=== PATIENT | female | born 1945 | race Caucasian/White ===

== ENCOUNTER 2017-11-25 20:32 | Observation (INO) ==
[2017-11-25] MEDS ORDERED: Sod Chloride 0.9% Inj 1,000 ML IV.SIG ONE (21:52)
[2017-11-25] MEDS ORDERED: Dextrose 50% in Water 50 ML Vial IV.PUSH PRN (21:52)
--- NOTE | 2017-11-25 21:52 | ED ---
HPI General Chief Complaint: Recheck/Abnormal Lab/Rx Stated Complaint: doctor sent Time Seen by Provider: 11/25/17 21:14 History of Present Illness HPI narrative: Patient is a 72-year-old female who was in [place] visiting her grandchildren she was there for a while she was in a breast cancer and they were discussing plans to mastectomy and reconstructive surgery however today she was called and told the CAT scan of her head showed there was metastases to her lungs and her head there come in immediately because Dr. Subramanian is the guide on could remove her uterus because she had ovarian cancer in the past as well. She has been progressively getting more forgetful she has mild edema of her lower extremities and she has a new diagnosis a primary breast with lung metastases as well ,, no other symptoms at this time except worsening mental functioning she is on no medications on a daily basis she denies diabetes hypertension cardiac problems in the past. At this time the main complaint is new diagnosis and was made aware that she emergently should get to an emergency room Related Data Home Medications Medication Instructions Recorded Confirmed zolpidem [Ambien] 5 mg PO HS 11/25/17 11/25/17 Allergies Allergy/AdvReac Type Severity Reaction Status Date / Time propoxyphene Allergy Mild NAUSEA Verified 11/26/17 00:34 meperidine AdvReac Intermediate vomits Verified 11/26/17 00:34 codeine AdvReac Unknown N/V Verified 11/26/17 00:34 Review of Systems ROS: all other systems reviewed are negative [facility] Medical History Medical History Breast CA (Acute) Cervical ca (Acute) History of hysterectomy (Acute) Social History Social History Substance History: No History of Abuse Second Hand Smoke Exposure: Yes Smoking Status: Former smoker How Often Do You Have a Drink Containing Alcohol: 2 to 3 times a week Recent Travel in [facility] [[email or web address]] within the Last 8 Weeks: No Recent Out of Country Travel within the Last 8 Weeks: No Immunization History Tetanus Immunization: <5 Years Exam Narrative Exam Narrative: GENERAL: awake alert but slow to answer questions answering all questions and providing all details of HPI SKIN: Warm and dry. HEAD: Atraumatic. Normocephalic. EYES: Pupils equal and round. No scleral icterus. No injection or drainage. ENT: No nasal bleeding or discharge. Mucous membranes pink and moist. NECK: Trachea midline. No JVD. CARDIOVASCULAR: Regular rate and rhythm. RESPIRATORY: No accessory muscle use. Clear to auscultation. Breath sounds equal bilaterally. GASTROINTESTINAL: Abdomen soft, non-tender, nondistended. Hepatic and splenic margins not palpable. MUSCULOSKELETAL: Extremities L> R edema in ankle No obvious deformities. NEUROLOGICAL: Awake and alert slow to answer questions . No obvious cranial nerve deficits. Motor grossly within normal limits. Five out of 5 muscle strength in the arms and legs. Normal speech. PSYCHIATRIC: Appropriate mood and affect; insight and judgment normal. Course Initial Documented Vital Signs Temperature 98.8 F 11/25/17 20:40 Pulse Rate 81 11/25/17 20:40 Respiratory Rate 18 11/25/17 20:40 Blood Pressure 149/68 H 11/25/17 20:40 Pulse Oximetry 96 11/25/17 20:40 Last Documented Vital Signs Temperature 97.7 F 11/26/17 05:43 Pulse Rate 60 11/26/17 05:43 Respiratory Rate 16 11/26/17 06:01 Blood Pressure 126/65 11/26/17 05:43 Pulse Oximetry 99 11/26/17 05:43 Medical Decision Making Lab Data Result diagrams: 11/25/17 22:20 11/25/17 22:20 Lab Results 11/25/17 11/25/17 11/25/17 Range/Units 22:20 22:20 22:20 WBC 6.9 (4.0-11.0) th/mm3 RBC 4.22 (4.00-5.30) mil/mm3 Hgb 13.5 (11.6-15.3) gm/dL Hct 39.4 (35.0-46.0) % MCV 93.3 (80.0-100.0) fL MCH 31.9 (27.0-34.0) pg MCHC 34.2 (32.0-36.0) % RDW 14.2 (11.6-17.2) % Plt Count 298 (150-450) th/mm3 MPV 7.3 (7.0-11.0) fL Neut % (Auto) 56.0 (16.0-70.0) % Lymph % (Auto) 28.9 (9.0-44.0) % [place] % (Auto) 7.8 (0.0-8.0) % Eos % (Auto) 6.4 H (0.0-4.0) % Baso % (Auto) 0.9 (0.0-2.0) % Neut # (Auto) 3.9 (1.8-7.7) th/mm3 Lymph # (Auto) 2.0 (1.0-4.8) th/mm3 [place] # (Auto) 0.5 (0.0-0.9) th/mm3 Eos # (Auto) 0.4 (0.0-0.4) th/mm3 Baso # (Auto) 0.1 (0.0-0.2) th/mm3 WBC Differential . Differential Comment Auto diff final PT 9.6 L (9.8-11.6) sec INR 0.9 Ratio Sodium (136-145) meq/L Potassium (3.5-5.1) meq/L Chloride (98-107) meq/L Carbon Dioxide (21.0-32.0) meq/L Anion Gap (5-15) meq/L BUN (7-18) mg/dL Creatinine (0.50-1.00) mg/dL Estimated GFR (>89) mL/min Random Glucose (74-106) mg/dL Lactic Acid (0.4-2.0) mmol/L Calcium (8.5-10.1) mg/dL Phosphorus 2.6 (2.5-4.9) mg/dL Total Bilirubin (0.2-1.0) mg/dL AST (15-37) U/L ALT (10-53) U/L Alkaline Phosphatase (45-117) U/L Troponin I Less than 0.02 L (0.02-0.05) ng/mL Total Protein (6.4-8.2) g/dL Albumin (3.4-5.0) g/dL Lipase 94 (73-393) U/L Beta-Hydroxybutyric Acd 0.07 (0.00-0.39) mmol/L Beta HCG, Quant 5 (0-5) mIU/mL 11/25/17 11/25/17 Range/Units 22:20 22:20 WBC (4.0-11.0) th/mm3 RBC (4.00-5.30) mil/mm3 Hgb (11.6-15.3) gm/dL Hct (35.0-46.0) % MCV (80.0-100.0) fL MCH (27.0-34.0) pg MCHC (32.0-36.0) % RDW (11.6-17.2) % Plt Count (150-450) th/mm3 MPV (7.0-11.0) fL Neut % (Auto) (16.0-70.0) % Lymph % (Auto) (9.0-44.0) % [place] % (Auto) (0.0-8.0) % Eos % (Auto) (0.0-4.0) % Baso % (Auto) (0.0-2.0) % Neut # (Auto) (1.8-7.7) th/mm3 Lymph # (Auto) (1.0-4.8) th/mm3 [place] # (Auto) (0.0-0.9) th/mm3 Eos # (Auto) (0.0-0.4) th/mm3 Baso # (Auto) (0.0-0.2) th/mm3 WBC Differential Differential Comment PT (9.8-11.6) sec INR Ratio Sodium 144 (136-145) meq/L Potassium 3.4 L (3.5-5.1) meq/L Chloride 110 H (98-107) meq/L Carbon Dioxide 26.5 (21.0-32.0) meq/L Anion Gap 8 (5-15) meq/L BUN 11 (7-18) mg/dL Creatinine 1.16 H (0.50-1.00) mg/dL Estimated GFR 46 L (>89) mL/min Random Glucose 105 (74-106) mg/dL Lactic Acid 0.9 (0.4-2.0) mmol/L Calcium 8.3 L (8.5-10.1) mg/dL Phosphorus (2.5-4.9) mg/dL Total Bilirubin 0.2 (0.2-1.0) mg/dL AST 16 (15-37) U/L ALT 18 (10-53) U/L Alkaline Phosphatase 88 (45-117) U/L Troponin I (0.02-0.05) ng/mL Total Protein 7.0 (6.4-8.2) g/dL Albumin 3.3 L (3.4-5.0) g/dL Lipase (73-393) U/L Beta-Hydroxybutyric Acd (0.00-0.39) mmol/L Beta HCG, Quant (0-5) mIU/mL Imaging Data Radiologist's impression: Head CT 11/26/17 22:06 CONCLUSION: 1. No acute intracranial abnormality Chest CT 11/26/17 22:07 CONCLUSION: 1. 12 mm nodule right upper lobe. 2. No infiltrate or mass. 3. Minimal bibasilar scarring. Discharge Plan Physicians Team ED Provider: Juan Luis Cortez Primary Care Provider: Andreas Smith Attending Provider: Chidi Weaver Status ED Status: Left Department Discharge Information Discharge Date/Time: 11/26/17 06:02
[2017-11-25 22:25] LABS: Baso # (Auto) 0.1 th/mm3 (0.0-0.2); Baso % (Auto) 0.9 % (0.0-2.0); Eos # (Auto) 0.4 th/mm3 (0.0-0.4); Eos % (Auto) 6.4 % (0.0-4.0); Hematocrit 39.4 % (35.0-46.0); Hemoglobin 13.5 gm/dL (11.6-15.3); Lymph % (Auto) 28.9 % (9.0-44.0); Mean Corpuscular HGB Conc 34.2 % (32.0-36.0); Mean Corpuscular Hemoglobin 31.9 pg (27.0-34.0); Mean Corpuscular Volume 93.3 fL (80.0-100.0); Mean Platelet Volume 7.3 fL (7.0-11.0); Mono # (Auto) 0.5 th/mm3 (0.0-0.9); Mono % (Auto) 7.8 % (0.0-8.0); Neut # (Auto) 3.9 th/mm3 (1.8-7.7); Platelet Count 298 th/mm3 (150-450); Red Blood Count 4.22 mil/mm3 (4.00-5.30); Red Cell Distribution Width 14.2 % (11.6-17.2); White Blood Count 6.9 th/mm3 (4.0-11.0)
[2017-11-25 22:37] LABS: INR 0.9 Ratio; Prothrombin Time 9.6 sec (9.8-11.6)
[2017-11-25 22:58] LABS: Lipase 94 U/L (73-393); Phosphorus 2.6 mg/dL (2.5-4.9)
[2017-11-25 23:01] LABS: Beta HCG,Quantitative 5 mIU/mL (0-5); Beta Hydroxybutyric Acid 0.07 mmol/L (0.00-0.39)
[2017-11-26 00:43] LABS: Alanine Aminotransferase 18 U/L (10-53); Albumin 3.3 g/dL (3.4-5.0); Anion Gap 8 meq/L (5-15); Aspartate Aminotransferase 16 U/L (15-37); Blood Urea Nitrogen 11 mg/dL (7-18); Calcium 8.3 mg/dL (8.5-10.1); Carbon Dioxide 26.5 meq/L (21.0-32.0); Chloride 110 meq/L (98-107); Glomerular Filtration Rate 46 mL/min (>89); Glucose,Random 105 mg/dL (74-106); Potassium 3.4 meq/L (3.5-5.1); Sodium 144 meq/L (136-145)
[2017-11-26 00:46] LABS: Alkaline Phosphatase 88 U/L (45-117)
--- NOTE | 2017-11-26 01:23 | CT ---
EXAM DATE: 11/26/2017 1:04 AM EDT AGE/SEX: 72 years / Female INDICATIONS: Altered mental status. CLINICAL DATA: This is the patient's initial encounter. Patient reports that signs and symptoms have been present for 1 day and indicates a pain score of 0/10. MEDICAL/SURGICAL HISTORY: Carcinoma, breast. Carcinoma, cervical. Hysterectomy. RADIATION DOSE: 51.51 CTDI (mGy) COMPARISON: TLI, CT SINUSES W/O CONTRAST, 06/09/2017. . TECHNIQUE: CT of the head without contrast. Using automated exposure control and adjustment of the mA and/or kV according to patient size, radiation dose was kept as low as reasonably achievable to ob tain optimal diagnostic quality images. DICOM format image data is available electronically for revi ew and comparison. FINDINGS: Cerebrum: The ventricles are normal for age. No evidence of midline shift, mass lesion, hemorrhage or acute infarction. No extraaxial fluid collections are seen. Posterior Fossa: The cerebellum and brainstem are intact. The 4th ventricle is midline. The cerebe llopontine angle is unremarkable. Extracranial: The visualized portion of the orbits is intact. Skull: The calvaria is intact. No evidence of skull fracture. CONCLUSION: 1. No acute intracranial abnormality Electronically signed by: Eric Rendon MD 11/26/2017 1:22 AM EDT
--- NOTE | 2017-11-26 01:25 | CT ---
EXAM DATE: 11/26/2017 1:04 AM EDT AGE/SEX: 72 years / Female INDICATIONS: Evaluate for mass. History of ovarian and breast cancer. CLINICAL DATA: This is the patient's initial encounter. Patient reports that signs and symptoms have been present for 1 day and indicates a pain score of 0/10. MEDICAL/SURGICAL HISTORY: Carcinoma, breast. Carcinoma, cervical. Hysterectomy. RADIATION DOSE: 10.45 CTDI (mGy) COMPARISON: . TECHNIQUE: Multiple contiguous axial images were obtained through the chest during bolus infusion of 70 ml Omnipaque 350 (iohexol) nonionic water-soluble contrast as a single exam dose. Images were obtained in suspended respiration using multiple row detector helical technique. Using automated exp osure control and adjustment of the mA and/or kV according to patient size, radiation dose was kept a s low as reasonably achievable to obtain optimal diagnostic quality images. DICOM format image data is available electronically for review and comparison. FINDINGS: Lungs: The lungs are symmetrically aerated. No infiltrates are seen. A 10 x 12 mm nodule within the posterior aspect of the right upper lobe. Linear densities seen within the lower lobes. Mediastinum: There is good visualization of the great vessels of the middle mediastinum. No evidenc e of mediastinal or hilar adenopathy/mass. Pleurae: No evidence of focal thickening or pleural effusion. Axillae: Bilateral breast implants. Bony Structures: Unremarkable. Miscellaneous: The examination was extended to include the upper abdomen, and both adrenal glands ar e normal in size and configuration. CONCLUSION: 1. 12 mm nodule right upper lobe. 2. No infiltrate or mass. 3. Minimal bibasilar scarring. Electronically signed by: Eric Rendon MD 11/26/2017 1:24 AM EDT
[2017-11-26] MEDS ORDERED: Acetaminophen 325 MG Tablet PO PRN (03:13)
[2017-11-26] MEDS ORDERED: Bisacodyl 10 MG Supp RECTAL PRN (03:13)
[2017-11-26] MEDS ORDERED: Sod Chloride 0.9% Inj 1,000 ML IV.CONT SCH (03:15)
[2017-11-26] MEDS ORDERED: LORazepam 0.5 MG Tablet PO ONE (03:32)
--- NOTE | 2017-11-26 03:39 | P.HPIM ---
History of Present Illness Primary Care Physician: Andreas Smith DO History of Present Illness: This is a 72-year-old female with a PMH of Cervical CA who was referred to the ER for admission/eval of abnormal CT findings. Pt's at bedside providing most of the history. States pt has h/o Cervical CA 2yrs ago for which she was following w/ Dr. Subramanian, currently in remission. Was visiting family in [place] recently and was apparently diagnosed w/ new Breast CA. states pt's granddaughter was called today by physician in [place] w/ results of "scan"-unclear if PET/CT or CT, which apparently showed metastatic disease to brain and lung. Per , pt noted to be more forgetful than usual, but no overt mental status changes, no increased lethargy, no reported seizure activity. On arrival, BP 149/68, HR 81, O2 sat 96% on RA, Afebrile. CBC unremarkable. INR 0.9. Chemistry unremarkable except for creatinine 1.16. Troponin negative. CT Head with no acute findings. CT Chest 12 mm nodule right upper lobe, no infiltrate or mass. - Diagnosis (1) Encephalopathy (2) CELINA (acute kidney injury) (3) Lung nodule Review of Systems PAST FAMILY HISTORY: Reviewed. No h/o DM or CAD All other systems reviewed negative except as stated in HPI [facility] - History History Provided By: Patient, Family Member - Medical History Medical History: Medical History (Last Updated 11/25/17 @ 21:03 by Corinne Downs) Breast CA Cervical ca History of hysterectomy - Tobacco History Tobacco Use In Past 30 Days: No Smoking Status: Former smoker - Alcohol History How Often Do You Have a Drink Containing Alcohol: 4 or more times a week - Substance Use History Substance History: No History of Abuse - Travel History Recent Travel in the [place] Within the Last 8 Weeks: No Recent Travel Out of the Country Within the Last 8 Weeks: No - Immunization History Tetanus Immunization: <5 Years Medications and Allergies Active Medications: Active Medications Acetaminophen (Tylenol) 650 mg PO Q4H PRN PRN Reason: Temp > 100.4 Al Hydroxide/Mg Hydroxide (Milk Of Magnesia Liq) 30 ml PO Q12H PRN PRN Reason: Mild Constipation Bisacodyl (Dulcolax Supp) 10 mg RECTAL DAILY PRN PRN Reason: SEVERE CONSITIPATION Dextrose (D50w Vial) 50 ml IV.PUSH UNSCH PRN PRN Reason: PER HYPOGLYCEMIA PROTOCOL Sodium Chloride (Ns Inj) 1,000 mls @ 100 mls/hr IV.CONT .Q10H KRIS Lactulose (Lactulose Liq) 30 ml PO DAILY PRN PRN Reason: SEVERE CONSITIPATION Ondansetron HCl (Zofran Inj) 4 mg IV.PUSH Q6H PRN PRN Reason: NAUSEA OR VOMITING Senna/Docusate Sodium (Disha-Colace) 1 tab PO BID KRIS Sennosides (Senokot) 17.2 mg PO Q12H PRN PRN Reason: Moderate Constipation Sodium Chloride (Ns Flush) 2 ml IV.FLUSH PRN PRN PRN Reason: FLUSH AFTER USING IV ACCESS Allergies Allergy/AdvReac Type Severity Reaction Status Date / Time propoxyphene Allergy Mild NAUSEA Verified 11/26/17 00:34 meperidine AdvReac Intermediate vomits Verified 11/26/17 00:34 codeine AdvReac Unknown N/V Verified 11/26/17 00:34 Home Medications Medication Instructions Recorded Confirmed Type zolpidem [Ambien] 5 mg PO HS 11/25/17 11/25/17 History Exam Vital signs: Vital Signs 11/25/17 20:40 11/25/17 22:22 Temperature 98.8 F Pulse Rate 81 Respiratory Rate 18 Blood Pressure 149/68 H Pulse Oximetry 96 97 Intake & Output 11/25/17 11/25/17 11/26/17 06:59 18:59 06:59 Intake Total 1000 / 1000 Balance 1000 / 1000 Weight 72.575 kg Intake: IV 1000 / 1000 NS Inj 1,000 ML @ Wide Open IV. 1000 / 1000 SIG BOLUS ONE Rx#:[id number] Narrative: PE: GENERAL: Pleasant middle-aged white female in no acute distress, slow to speak, poor historian, but appropriate. at bedside. SKIN: Focused skin assessment warm and dry. HEENT: PERRLA, EOMI. No scleral icterus or conjunctival pallor. No lid lag or facial droop. CARDIOVASCULAR: Regular rate and rhythm. No obvious murmurs to auscultation. No chest tenderness to palpation. RESPIRATORY: No obvious rhonchi or wheezing. Clear to auscultation. Breath sounds equal bilaterally. GASTROINTESTINAL: Abdomen soft, non-tender, nondistended. BS normal. MUSCULOSKELETAL: Extremities without clubbing, cyanosis, or edema. No obvious deformities. NEUROLOGICAL: Awake, alert. No focal neurologic deficits. Moving both upper and lower extremities spontaneously. PSYCHIATRIC: Appropriate mood and affect. Insight and judgment normal. Results - Labs CBC & Chem 7: 11/25/17 22:20 11/25/17 22:20 Labs: Short CBC 11/25/17 Range/Units 22:20 WBC 6.9 (4.0-11.0) th/mm3 Hgb 13.5 (11.6-15.3) gm/dL Hct 39.4 (35.0-46.0) % Plt Count 298 (150-450) th/mm3 BMP 11/25/17 22:20 Sodium 144 Potassium 3.4 L Chloride 110 H Carbon Dioxide 26.5 BUN 11 Creatinine 1.16 H Calcium 8.3 L Cardiac Enzymes 11/25/17 Range/Units 22:20 Troponin I Less than 0.02 L (0.02-0.05) ng/mL Liver Function 11/25/17 Range/Units 22:20 Total Bilirubin 0.2 (0.2-1.0) mg/dL AST 16 (15-37) U/L ALT 18 (10-53) U/L Alkaline Phosphatase 88 (45-117) U/L Albumin 3.3 L (3.4-5.0) g/dL - Imaging Impressions Head CT 11/26/17 22:06 CONCLUSION: 1. No acute intracranial abnormality Chest CT 11/26/17 22:07 CONCLUSION: 1. 12 mm nodule right upper lobe. 2. No infiltrate or mass. 3. Minimal bibasilar scarring. Caprini VTE Risk Assessment Caprini VTE Risk Assessment: No/Low Risk (score <= 1) Caprini Risk Assessment Model: Point Value = 1 Point Value = 2 Point Value = 3 Point Value = 5 Age 41-60 Minor surgery BMI > 25 kg/m2 Swollen legs Varicose veins or History of unexplained or recurrent spontaneous Oral contraceptives or hormone replacement Sepsis (< 1 month) Serious lung disease, including pneumonia (< 1 month) Abnormal pulmonary function Acute myocardial infarction Congestive heart failure (< 1 month) History of inflammatory bowel disease Medical patient at bed rest Age 61-74 Arthroscopic surgery Major open surgery (> 45 min) Laparoscopic surgery (> 45 min) Malignancy Confined to bed (> 72 hours) Immobilizing plaster cast Central venous access Age >= 75 History of VTE Family history of VTE Factor V Leiden Prothrombin [id number] Lupus anticoagulant Anticardiolipin antibodies Elevated serum homocysteine Heparin-induced thrombocytopenia Other congenital or acquired thrombophilia Stroke (< 1 month) Elective arthroplasty Hip, pelvis, or leg fracture Acute spinal cord injury (< 1 month) Prophylaxis Regimen: Total Risk Factor Score Risk Level Prophylaxis Regimen 0-1 Low Early ambulation 2 Moderate Order ONE of the following: *Sequential Compression Device (SCD) *Heparin 5000 units SQ BID 3-4 Higher Order ONE of the following medications: *Heparin 5000 units SQ TID *Enoxaparin/Lovenox 40 mg SQ daily (WT < 150 kg, CrCl > 30 mL/min) *Enoxaparin/Lovenox 30 mg SQ daily (WT < 150 kg, CrCl > 10-29 mL/min) *Enoxaparin/Lovenox 30 mg SQ BID (WT < 150 kg, CrCl > 30 mL/min) AND/OR *Sequential Compression Device (SCD) 5 or more Highest Order ONE of the following medications: *Heparin 5000 units SQ TID (Preferred with Epidurals) *Enoxaparin/Lovenox 40 mg SQ daily (WT < 150 kg, CrCl > 30 mL/min) *Enoxaparin/Lovenox 30 mg SQ daily (WT < 150 kg, CrCl > 10-29 mL/min) *Enoxaparin/Lovenox 30 mg SQ BID (WT < 150 kg, CrCl > 30 mL/min) AND *Sequential Compression Device (SCD) Assessment and Plan - Assessment (1) Encephalopathy Code(s): G93.40 - Encephalopathy, unspecified Status: Acute (2) CELINA (acute kidney injury) Code(s): N17.9 - Acute kidney failure, unspecified Status: Acute (3) Lung nodule Code(s): R91.1 - Solitary pulmonary nodule Status: Acute - Plan A/P: 1. Encephalopathy: notes increased forgetfulness, intermittent confusion, no lethargy. Outpatient imaging from [place] apparently revealed metastatic disease to brain/lung, however no records available at this time. CT Head here w/ no acute findings, images reviewed. Will obtain MRI Brain to eval for underlying metastatic disease. Neuro Checks. Check U/a to eval for possible UTI. 2. Lung Nodule: reported brain/lung mets as above, CT Chest w/ 12mm RUL nodule , no mass/infiltrate seen, images reviewed. Will attempt to obtain records from [place], however does not know which hospital pt was evaluated at, states granddaughter has copy of records. Consult Oncology for further eval/ intervention. 3. CELINA: Creatinine 1.16, previously 0.72 on 04/27/14, IVF for hydration, check U/a to eval for UTI, monitor I/O, repeat labs in am 4. DVT Prophylaxis: SCD/Teds 5. Social work for d/c planning as needed 6. Case discussed w/ ER physician at length, labs/records/imaging reviewed by me.
[2017-11-26 04:19] VITALS: RESP 16
[2017-11-26 05:44] VITALS: O2SAT 99
[2017-11-26 08:22] VITALS: BP 123/92; PULSE 59; TEMP 97.6
[2017-11-26] MEDS ORDERED: Senna/Docusate Sodium 8.6/50 MG Tablet PO SCH (09:00)
[2017-11-26 09:24] LABS: Bilirubin,Urine Negative (Negative); Clarity,Urine Clear (Clear); Color,Urine Straw (Yellw/Straw); Glucose,Urine (UA) Negative (Negative); Leukocyte Esterase,Urine Negative (Negative); Nitrite,Urine Negative (Negative); Specific Gravity,Urine 1.029 (1.002-1.035); Squamous Epithelial Cell,Urine 2 /hpf (0-5)
[2017-11-26] MEDS ORDERED: Gadobutrol PF 10 MMOL/10 ML Vial (for RAD) IV.SIG ONE (09:27)
--- NOTE | 2017-11-26 09:49 | MR ---
EXAM DATE: 11/26/2017 9:18 AM EDT AGE/SEX: 72 years / Female INDICATIONS: Altered mental status. Patient with history of breast and ovarian cancer is being hailey luated for metastatic disease. CLINICAL DATA: This is the patient's initial encounter. Patient reports that signs and symptoms have been present for 1 day and indicates a pain score of 0/10. MEDICAL/SURGICAL HISTORY: Carcinoma, breast. Carcinoma, cervical. Hysterectomy. Tubal ligatio n. COMPARISON: No prior exams available for comparison. TECHNIQUE: Multiplanar, multisequence examination of the brain was performed without and with 8 ml Ga davist (gadobutrol) contrast as a single exam dose. FINDINGS: Cerebrum: The ventricles are normal for age. No evidence of midline shift, mass lesion, hemorrhage or acute infarction. No extraaxial fluid collections are seen. The pituitary gland and suprasellar cistern are normal in configuration. White Matter: On the FLAIR weighted images there are multiple scattered small foci of increased sign al in the white matter. Posterior Fossa: The cerebellum and brainstem are intact. The 4th ventricle is midline. The cerebel lopontine angle is unremarkable. The cerebellar tonsils are normal in position. Diffusion Imaging: No focal areas of restricted diffusion are seen. No evidence of acute infarction . Extracranial: The visualized portions of the orbits and paranasal sinuses are unremarkable. Post Contrast: No abnormal areas of parenchymal or dural enhancement. No evidence of blood-brain ba rrier breakdown. CONCLUSION: 1. No evidence of metastatic disease. 2. Mild atrophy and chronic small vessel ischemic changes. Electronically signed by: Kris Quijano MD 11/26/2017 9:48 AM EDT
--- NOTE | 2017-11-26 11:29 | P.CON ---
History of Present Illness Service: Hematology/oncology. Consult date: 11/26/17 Requesting Physician: Enedina Glez Reason for Consult: Reported new diagnosis of breast cancer. Primary Care Provider: Andreas Smith DO Chief Complaint: Patient advised to come to the ER by her niece who is a nurse. History of Present Illness: Ms. 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 She underwent systemic therapy with carboplatin and Taxol for total of 8 cycles followed by JORGE and BSO with isac resection by Dr. Subramanian of [facility]. She completed treatment I believe in 2014 and has since then been on observation. The patient reports having relocated temporarily to [place] several months ago. She moved to [place] to stay with her daughter. While in [place] she underwent a mammogram and on mammogram was found to have abnormalities within the left breast, these abnormalities were associated with nipple retraction. She cannot recall if she has had a biopsy to date but was informed she needed surgery. She at that time decided to relocate back to the [facility] so she could undergo medical treatments here. The patient's lives in [facility], the patient is also lived most of her life here in the [place] area. While in [place] she underwent imaging studies which I believe included a CT scan of the thorax, this revealed a 12 mm nodule involving the right upper lung, the results were reviewed by the patient's niece who is a nurse in [place]. She called the patient yesterday and told her to come into the emergency department for further evaluation of the nodule in the lung. The patient's niece also advised the patient to get a scan of her head because "there may be cancer in the head ". The patient and her understandably were scared and came in. The patient tells me she symptomatically feels no different today as compared to over the past several weeks. She tells me she has been doing very well in fact. Upon presentation to the emergency department evaluation by our emergency department physicians. The patient underwent MRI of the brain which revealed no evidence of metastatic disease, she was found to have chronic microvascular changes. She also underwent a CT scan of the chest which revealed a nodular 12 mm nodule involving the right upper lobe of the lung. There is no evidence of mediastinal lymphadenopathy. Review of Systems Constitutional: Denies anorexia, Denies body ache(s), Denies chills, Denies daytime sleepiness, Denies fatigue, Denies fever(s), Denies malaise, Denies night sweats, Denies weakness, Denies weight gain, Denies weight loss Eyes: Denies change in vision Ears, Nose, Mouth, and Throat: Reports sinus pain, Denies change in voice, Denies neck lump, Denies neck pain, Denies sore throat Cardiovascular: Denies chest pain, Denies radiating jaw, neck or arm pain, Denies rapid, pounding, or irregular heartbeat, Denies shortness of breath, Denies shortness of breath with activity, Denies shortness of breath when lying down, Denies shortness of breath causing sudden awakening Respiratory: Denies cough, Denies pain on inspiration, Denies pain with cough, Denies shortness of breath, Denies shortness of breath with activity, Denies wheezing Gastrointestinal: Denies abdominal pain, Denies bloating, Denies feeling full early, Denies incontinent of stools, Denies loose stools, Denies nausea, Denies vomiting blood Genitourinary: Denies genital lesions, Denies urinary urgency, Denies vaginal discharge, Denies vaginal dryness Musculoskeletal: Denies abnormal walking, Denies body aches, Denies stiffness Skin/Breast: Reports breast skin changes (Nipple retraction of the left breast.) Neurologic: Reports memory loss (Reports dementia.), Denies abnormal hearing, Denies dizziness, Denies lack of coordination, Denies localized weakness, Denies numbness, Denies other visual disturbances Psychiatric: Reports confusion, Denies anxiety, Denies behavioral changes Comments: Reports history of dementia. Endocrine: Denies cold intolerance Hematologic/Lymphatic: Denies easy bleeding Allergic/Immunologic: Denies GI upset with certain foods PMFSH - History History Provided By: Patient, Significant Other - Medical History Medical History: Medical History (Last Updated 11/26/17 @ 11:19 by Charbel Jeffries MD) Abnormal mammogram Dementia Recurrent sinusitis Recurrent strokes Solitary lung nodule Uterine carcinoma - Surgical History Surgical History: Surgical History (Last Updated 11/26/17 @ 11:19 by Charbel Jeffries MD) History of total abdominal hysterectomy and bilateral salpingo-oophorectomy - Family History Family History: Family History (Last Updated 11/26/17 @ 11:20 by Charbel Jeffries MD) Other Colon cancer Congestive heart failure Ovarian cancer - Social History I have reviewed the patient's Social History: Yes - Tobacco History Second Hand Smoke Exposure: Yes Tobacco Use In Past 30 Days: No Smoking Status: Former smoker - Alcohol History How Often Do You Have a Drink Containing Alcohol: 2 to 3 times a week - Substance Use History Substance History: No History of Abuse - Travel History Recent Travel in the [place] Within the Last 8 Weeks: No Recent Travel Out of the Country Within the Last 8 Weeks: No - Immunization History Tetanus Immunization: <5 Years Medications and Allergies Active Medications: Active Medications Acetaminophen (Tylenol) 650 mg PO Q4H PRN PRN Reason: Temp > 100.4 Al Hydroxide/Mg Hydroxide (Milk Of Magnesia Liq) 30 ml PO Q12H PRN PRN Reason: Mild Constipation Bisacodyl (Dulcolax Supp) 10 mg RECTAL DAILY PRN PRN Reason: SEVERE CONSITIPATION Dextrose (D50w Vial) 50 ml IV.PUSH UNSCH PRN PRN Reason: PER HYPOGLYCEMIA PROTOCOL Sodium Chloride (Ns Inj) 1,000 mls @ 100 mls/hr IV.CONT .Q10H [facility] Last Admin: 11/26/17 03:58 Dose: 100 mls/hr Lactulose (Lactulose Liq) 30 ml PO DAILY PRN PRN Reason: SEVERE CONSITIPATION Ondansetron HCl (Zofran Inj) 4 mg IV.PUSH Q6H PRN PRN Reason: NAUSEA OR VOMITING Senna/Docusate Sodium (Disha-Colace) 1 tab PO BID [facility] Last Admin: 11/26/17 10:27 Dose: Not Given Sennosides (Senokot) 17.2 mg PO Q12H PRN PRN Reason: Moderate Constipation Sodium Chloride (Ns Flush) 2 ml IV.FLUSH PRN PRN PRN Reason: FLUSH AFTER USING IV ACCESS Allergies Allergy/AdvReac Type Severity Reaction Status Date / Time propoxyphene Allergy Mild NAUSEA Verified 11/26/17 00:34 meperidine AdvReac Intermediate vomits Verified 11/26/17 00:34 codeine AdvReac Unknown N/V Verified 11/26/17 00:34 Home Medications Medication Instructions Recorded Confirmed Type zolpidem [Ambien] 5 mg PO HS 11/25/17 11/25/17 History Physical Exam Vital signs: Vital Signs 11/25/17 20:40 11/25/17 22:22 11/26/17 04:00 Temperature 98.8 F Pulse Rate 81 63 Respiratory Rate 18 16 Blood Pressure 149/68 H Pulse Oximetry 96 97 97 11/26/17 04:18 11/26/17 05:43 11/26/17 06:01 Temperature 97.7 F Pulse Rate 63 60 Respiratory Rate 16 16 16 Blood Pressure 133/63 126/65 Pulse Oximetry 97 99 11/26/17 08:00 Temperature 97.6 F Pulse Rate 59 L Respiratory Rate 16 Blood Pressure 123/92 H Pulse Oximetry 99 Intake & Output 11/25/17 11/26/17 11/26/17 18:59 06:59 18:59 Intake Total 1000 / 1000 Balance 1000 / 1000 Weight 72.575 kg Intake: IV 1000 / 1000 NS Inj 1,000 ML @ Wide Open IV. 1000 / 1000 SIG BOLUS ONE Rx#:[id number] Other: Weight On Admission 72.575 kg Narrative: Ms. Chavarria is an elderly lady, she sitting up in bed, she appears to be no acute distress she has a pleasant disposition. She looks to her for reassurance and assistance with answering questions. She is a medium height heavyset. - Constitutional no acute distress - Routine HEENT Exam Head: Present: normocephalic Eye: Present: EOMI, PERRL ENT: Present: mucous membranes moist - Routine Neck Exam Present: supple, full ROM. Absent: JVD, lymphadenopathy, thyromegaly - Routine Chest/Breast/Axilla Exam Chest wall: Absent: tenderness, mass Breast: Absent: tenderness, induration Axillae: Absent: lymphadenopathy, mass, tenderness, rashes Comments: Bilateral breast examination was performed in the presence of a female nurse practitioner requisition approver. Right breast: No skin changes noted, no masses identified. No right axilla lymphadenopathy. Left breast: Nipple retraction noted, some nodularity is identified in the retroareolar areolar region. No large masses identified. No axilla lymphadenopathy on left side. - Routine Respiratory Exam Present: CTA bilaterally. Absent: accessory muscle use, rales, respiratory distress, rhonchi, stridor - Routine Cardiovascular Exam Present: RRR, S1, S2. Absent: murmur, gallop, rubs, S3, S4 - Routine Abdominal Exam Present: soft, surgical scars. Absent: normoactive bowel sounds, tenderness, distended, rebound, rigid, organomegaly, wound - Routine Skin Exam Present: intact. Absent: erythema - Routine Neurological Exam Present: alert, oriented X3, CN II-XII intact - Detailed Neurological Exam: Coma Scale Eye Opening: Spontaneous - Routine Psychiatric Exam Present: normal affect Assessment and Plan - Plan Ms. Chavarria is a 72-year-old female with a previous history of stage IIIb uterine papillary serous carcinoma diagnosed in 2012, treated with neoadjuvant chemotherapy followed by surgical resection with a JORGE and BSO under the care of Dr. Emeli Subramanian. The patient had been on observation alone and has been in remission. Some months ago she underwent screening mammography and was found to have abnormalities within the left breast, she was advised biopsy by her physicians in [place]. The patient elected to move back to [facility] to live with her to undergo definitive therapy including surgical resection. She tells me she has mammogram reports and office visit notes from her physicians in [place] sitting at home. The patient came into the ER because a niece in [place] advised her to the ER for further evaluation of an abnormal chest imaging study. The chest imaging study performed in [place] apparently revealed a nodule in the right lung. The patient herself feels asymptomatic. The other purpose for her to come into the ER was to be established medical follow-up as she had not been in the area for several months. Recommendations: 1. Reported findings of abnormal mammogram and abnormal clinical exam of the left breast: I will request outpatient follow-up, I will request mammography results from [place] as well as any pathology that may be available. The patient does have dementia, she does not recall if the biopsy has to date been performed. On clinical exam there does appear to be a possible site where a small incision was made in the left breast and there is some resolving bruising consistent with possible previous biopsy. She had a diagnosis of breast carcinoma have already been established I will request evaluation by breast surgery/general surgery for lumpectomy/mastectomy. 2. Right upper lobe pulmonary nodule measuring 12 mm. This nodule was present on PET/CT scan from August 2016. It appears to be essentially unchanged in size and configuration compared to then. There was no significant abnormal FDG uptake associated with this. This likely requires observation. It is not clear whether this is at all associated or related to her previous oncologic history. 3. MRI brain appears to be without evidence of abnormalities other than chronic microvascular changes.
--- NOTE | 2017-11-26 11:44 | P.PN ---
Subjective Interval history: Follow-up for abnormal CT with lung nodule, concern for breast cancer. Patient is seen ambulating her room. She denies any specific medical complaints. Denies any further episodes of confusion. Patient's is at bedside and states she is at baseline. She states ever since she has had her strokes, she does become intermittently confused, but this is now normal for her. She is currently awake, alert, oriented to self, place, and month/year. She wants to go home. Discussed with Dr. Jeffries, recommends the patient be discharged home and follow-up as outpatient. The patient and are agreeable with this plan. Physical Exam Vital signs: Vital Signs 11/25/17 20:40 11/25/17 22:22 11/26/17 04:00 Temperature 98.8 F Pulse Rate 81 63 Respiratory Rate 18 16 Blood Pressure 149/68 H Pulse Oximetry 96 97 97 11/26/17 04:18 11/26/17 05:43 11/26/17 06:01 Temperature 97.7 F Pulse Rate 63 60 Respiratory Rate 16 16 16 Blood Pressure 133/63 126/65 Pulse Oximetry 97 99 11/26/17 08:00 Temperature 97.6 F Pulse Rate 59 L Respiratory Rate 16 Blood Pressure 123/92 H Pulse Oximetry 99 Intake & Output 11/25/17 11/26/17 11/26/17 18:59 06:59 18:59 Intake Total 1000 / 1000 Balance 1000 / 1000 Weight 72.575 kg Intake: IV 1000 / 1000 NS Inj 1,000 ML @ Wide Open IV. 1000 / 1000 SIG BOLUS ONE Rx#:[id number] Other: Weight On Admission 72.575 kg Narrative: GENERAL: Well-nourished, well-developed pleasant female patient in [facility]. Ambulating her room. SKIN: Warm and dry. No rash. HEENT: Normocephalic. Atraumatic. Pupils equal and round. Mucous membranes pink and moist. CARDIOVASCULAR: Regular rate and rhythm. No murmur appreciated. RESPIRATORY: No accessory muscle use. Clear to auscultation. Breath sounds equal bilaterally. GASTROINTESTINAL: Abdomen soft, non-tender, nondistended. Normoactive bowel sounds x4. MUSCULOSKELETAL: No obvious deformities. Extremities without clubbing, cyanosis , or edema. NEUROLOGICAL: Awake and alert. No obvious cranial nerve deficits. Motor grossly within normal limits. Moving all extremities spontaneously. Normal speech. Results - Labs CBC & Chem 7: 11/25/17 22:20 11/25/17 22:20 Laboratory Results - last 24 hr 11/25/17 11/25/17 11/25/17 22:20 22:20 22:20 WBC 6.9 RBC 4.22 Hgb 13.5 Hct 39.4 MCV 93.3 MCH 31.9 MCHC 34.2 RDW 14.2 Plt Count 298 MPV 7.3 Neut % (Auto) 56.0 Lymph % (Auto) 28.9 [place] % (Auto) 7.8 Eos % (Auto) 6.4 H Baso % (Auto) 0.9 Neut # (Auto) 3.9 Lymph # (Auto) 2.0 [place] # (Auto) 0.5 Eos # (Auto) 0.4 Baso # (Auto) 0.1 WBC Differential . Differential Comment Auto diff final PT 9.6 L INR 0.9 Sodium Potassium Chloride Carbon Dioxide Anion Gap BUN Creatinine Estimated GFR Random Glucose Lactic Acid Calcium Phosphorus 2.6 Total Bilirubin AST ALT Alkaline Phosphatase Troponin I Less than 0.02 L Total Protein Albumin Lipase 94 Beta-Hydroxybutyric Acd 0.07 Beta HCG, Quant 5 Urine Color Urine Clarity Urine pH Ur Specific [place] Urine Protein Urine Glucose (UA) Urine Ketones Urine Occult Blood Urine Nitrate Urine Bilirubin Urine Urobilinogen Ur Leukocyte Esterase Urine RBC Urine WBC Ur Squamous Epith Cells Micro UA Comment Ur Microscopic Review Urine Culture Comments 11/25/17 11/25/17 11/26/17 22:20 22:20 08:45 WBC RBC Hgb Hct MCV MCH MCHC RDW Plt Count MPV Neut % (Auto) Lymph % (Auto) [place] % (Auto) Eos % (Auto) Baso % (Auto) Neut # (Auto) Lymph # (Auto) [place] # (Auto) Eos # (Auto) Baso # (Auto) WBC Differential Differential Comment PT INR Sodium 144 Potassium 3.4 L Chloride 110 H Carbon Dioxide 26.5 Anion Gap 8 BUN 11 Creatinine 1.16 H Estimated GFR 46 L Random Glucose 105 Lactic Acid 0.9 Calcium 8.3 L Phosphorus Total Bilirubin 0.2 AST 16 ALT 18 Alkaline Phosphatase 88 Troponin I Total Protein 7.0 Albumin 3.3 L Lipase Beta-Hydroxybutyric Acd Beta HCG, Quant Urine Color Straw Urine Clarity Clear Urine pH 6.0 Ur Specific [place] 1.029 Urine Protein Negative Urine Glucose (UA) Negative Urine Ketones Negative Urine Occult Blood Negative Urine Nitrate Negative Urine Bilirubin Negative Urine Urobilinogen Less than 2 Ur Leukocyte Esterase Negative Urine RBC Less than 1 Urine WBC 1 Ur Squamous Epith Cells 2 Micro UA Comment Culture not ind Ur Microscopic Review Not Reportable Urine Culture Comments Culture not ind - Imaging Impressions Head MRI 11/26/17 00:00 CONCLUSION: 1. No evidence of metastatic disease. 2. Mild atrophy and chronic small vessel ischemic changes. Head CT 11/26/17 22:06 CONCLUSION: 1. No acute intracranial abnormality Chest CT 11/26/17 22:07 CONCLUSION: 1. 12 mm nodule right upper lobe. 2. No infiltrate or mass. 3. Minimal bibasilar scarring. Assessment and Plan - Assessment (1) Encephalopathy Code(s): G93.40 - Encephalopathy, unspecified Status: Acute (2) CELINA (acute kidney injury) Code(s): N17.9 - Acute kidney failure, unspecified Status: Acute (3) Lung nodule Code(s): R91.1 - Solitary pulmonary nodule Status: Acute - Plan 72-year-old female with a PMH of Cervical CA who was referred to the ER for admission/eval of abnormal CT findings. Encephalopathy: notes increased forgetfulness, intermittent confusion, no lethargy. -Outpatient imaging from [place] apparently revealed metastatic disease to brain/lung, however no records available at this time. -CT Head here w/ no acute findings, images reviewed. -Brain MRI reviewed and unremarkable, no evidence of metastases -Patient and report she is back to her baseline -stable for discharge Lung Nodule: reported brain/lung mets as above, CT Chest w/ 12mm RUL nodule, no mass/infiltrate seen, images reviewed. -Consult Oncology, per Dr. Jeffries, reportedly nodule was present on PET/CT scan from August 2016, appears essentially unchanged, likely requires observation Abnormal Outpatient Mammogram: reportedly done in [place] -Consulted oncology, seen by Dr. Jeffries who plans to obtain records of mammogram/biopsy done in [place], cleared for discharge, outpatient f/up with Dr. Jeffries CELINA: Creatinine 1.16, previously 0.72 on 04/27/14 -Given IVF for hydration -UA negative -monitor I/O -encouraged oral hydration after discharge DVT Prophylaxis: SCD/Teds Discharge Planning: Discussed with Dr. Jeffries, cleared for discharge, outpatient f/up arranged. Discharge patient to home Condition on discharge: Stable Regular Diet as tolerated Ad Holly activity Rx written: no new meds Follow-up with primary care physician and oncology Dr. Jeffries
--- NOTE | 2017-11-26 22:16 | ECG ---
Date Performed: 11/25/2017 Time Performed: 22:05:52 PTAGE: 72 years EKG: Sinus rhythm WITH SINUS ARRHYTHMIA NORMAL ECG Since the PREVIOUS TRACING , no significant change noted DOCTOR: Elba Cosme Interpretating Date/Time 11/26/2017 22:14:32
== END 2017-11-26 12:21 | disposition home or self-care (01) ==
LOC: NEDA 20:32 → NEPC 20:32 → NEPHCDU 11-26 05:32
PROVIDERS: ADMIT Hospitalist; ATTEND Hospitalist